=== PATIENT | female | born 1960 | race Caucasian/White ===

== ENCOUNTER 2017-04-14 16:00 | Emergency (ER) | payer MEDICAID ==
[~2017-04-14] VITALS: Ht 154.9 cm; Wt 65.8 kg
[2017-04-14 16:00] VITALS: BP_SYST 128
--- NOTE | 2017-04-14 16:00 | NUR ---
BROUGHT BACK TO BED #7 AND TRIAGED. REPORT GIVEN TO ESTELA
--- NOTE | 2017-04-14 16:12 | NUR ---
Patient is A& O x 4 and ambulated to bedside. Patient complains of insect bite on left elbow for 2 days now itching and feeling pain radiating up arm. 6/10 pain. Denies any fevers. No other complaints/injuries per patient or as noted. Will continue to monitor.
--- NOTE | 2017-04-14 16:15 | NUR ---
NIKKI Hutchinson at bedside examining patient.
[2017-04-14 16:24] VITALS: BP_SYST 128
--- NOTE | 2017-04-14 16:24 | NUR ---
Patient given written and verbal discharge instructions and verbalizes understanding. ER MD discussed with patient the results and treatment provided. Patient in stable condition. ID arm band removed. Rx of Hydrocortisone Ointment and Keflex given. Patient educated on pain management and to follow up with PMD in 2-3 days. Pain Scale 0/10 Opportunity for questions provided and answered.
== END 2017-04-14 16:24 | disposition home or self-care (01) ==
LOC: SED 16:00
DX: S50.362A Insect bite (nonvenomous) of left elbow, initial encounter (principal); L03.114 Cellulitis of left upper limb; I10 Essential (primary) hypertension; Z90.49 Acquired absence of other specified parts of digestive tract; W57.XXXA Bitten or stung by nonvenomous insect and other nonvenomous arthropods, initial encounter; Y93.89 Activity, other specified; Y92.89 Other specified places as the place of occurrence of the external cause; Y99.8 Other external cause status
CPT/HCPCS: 99283

== ENCOUNTER 2020-03-11 11:18 | Emergency (ER) | payer MEDICAID ==
[~2020-03-11] VITALS: Ht 154.9 cm; Wt 69.9 kg
[2020-03-11 11:18] VITALS: BP_SYST 139
[2020-03-11 12:52] LABS: BASOPHILS % (AUTO) 0.9 % (0.0-2.0); EOSINOPHILS # (AUTO) 0.1 K/uL (0.0-0.4); EOSINOPHILS % (AUTO) 1.2 % (0.0-4.0); HEMATOCRIT 26.1 % (36-48); HEMOGLOBIN 8.1 g/dL (12.0-16.0); LYMPHOCYTES # (AUTO) 1.8 K/uL (1.0-5.5); LYMPHOCYTES % (AUTO) 33.9 % (20.5-51.5); MEAN CORPUSCULAR HEMOGLOBIN 22 pg (27-31); MEAN CORPUSCULAR HGB CONC 31 % (32-36); MEAN CORPUSCULAR VOLUME 71 fL (79.0-98.0); MONOCYTES # (AUTO) 0.3 K/uL (0.0-1.0); MONOCYTES % (AUTO) 5.9 % (1.7-9.3); NEUTROPHILS # (AUTO) 3.1 K/uL (1.8-7.7); NEUTROPHILS % (AUTO) 58.1 % (40.0-70.0); PLATELET COUNT (AUTO) 391 K/uL (130-430); RED BLOOD CELL COUNT(AUTO) 3.69 MIL/uL (4.2-6.2); RED CELL DISTRIBUTION WIDTH 18.2 % (9.0-15.0); WHITE BLOOD COUNT (AUTO) 5.3 K/uL (4.8-10.8)
[2020-03-11 13:09] LABS: CALCIUM 10.6 mg/dL (8.4-11.0); CREATININE 0.64 mg/dL (0.55-1.30); POTASSIUM 3.7 mmol/L (3.5-5.1)
[2020-03-11 13:24] LABS: ALBUMIN 3.8 g/dL (3.4-4.8); FREE T4 (FREE THYROXINE) 1.2 ng/dl (0.8-1.5); THYROID STIMULATING HORMONE 1.53 uIu/mL (0.36-3.74); TOTAL BILIRUBIN 0.3 mg/dL (0.0-1.0)
[2020-03-11 14:46] VITALS: BP_SYST 139
== END 2020-03-11 14:46 | disposition home or self-care (01) ==
LOC: SED 11:18
DX: F41.9 Anxiety disorder, unspecified (principal); I10 Essential (primary) hypertension; Z88.1 Allergy status to other antibiotic agents
CPT/HCPCS: 36415; 80053; 81002; 82962; 84439; 84443-TC; 85025; 99283

== ENCOUNTER 2021-11-11 08:54 | Emergency (ER) | payer MEDICAID ==
[~2021-11-11] VITALS: Ht 154.9 cm; Wt 65.8 kg
[~2021-11-11 08:54] MED LIST: ASA81 PO; ASCO500T20 PO; CYAN100010 PO; FER300L PO; HYDR25TA4 PO; LISI20TA30 PO; NOR10 PO; OMEP20CA15 PO; PRO40 PO; SENN-22 PO; TURM1CAP2 PO; VITD400 PO
[2021-11-11 09:01] VITALS: BP_SYST 143
--- NOTE | 2021-11-11 09:11 | NUR ---
Patient to ER bed 6 to gown for evaluation. Side rails up. Report given to NIKKI Harrison .
--- NOTE | 2021-11-11 09:15 | NUR ---
ER DR. FISCHER AT THE BEDSIDE EXAMINING PT
--- NOTE | 2021-11-11 09:20 | NUR ---
PT CAME IN FROM HOME C/O ROSS, NAUSEA AND DIARRHEA AND FEELING WEAK X 1 WEEK. PT IS AMBULATORY, [id number], VSS
--- NOTE | 2021-11-11 09:28 | NUR ---
PORTABLE XRAY AT THE BEDSIDE
--- NOTE | 2021-11-11 09:32 | NUR ---
LAB AT THE BEDSIDE FOR BLOOD DRAW
[2021-11-11 10:01] LABS: ANION GAP 7 (5-15); CALCIUM 10.7 mg/dL (8.4-11.0); CHLORIDE 101 mmol/L (98-107); CREATININE 0.53 mg/dL (0.55-1.30); GLUCOSE 112 mg/dL (70-99); POTASSIUM 3.2 mmol/L (3.5-5.1); SODIUM SERUM 137 mmol/L (136-145); UREA NITROGEN, BLOOD 9 mg/dL (8-21)
[2021-11-11 10:04] LABS: BASOPHILS # (AUTO) 0.1 K/uL (0.0-0.2); BASOPHILS % (AUTO) 1.4 % (0.0-2.0); EOSINOPHILS # (AUTO) 0.1 K/uL (0.0-0.4); EOSINOPHILS % (AUTO) 1.8 % (0.0-4.0); LYMPHOCYTES # (AUTO) 1.3 K/uL (1.0-5.5); LYMPHOCYTES % (AUTO) 29.9 % (20.5-51.5); MEAN CORPUSCULAR HEMOGLOBIN 31 pg (27-31); MEAN CORPUSCULAR HGB CONC 33 % (32-36); MEAN CORPUSCULAR VOLUME 92 fL (79.0-98.0); MONOCYTES # (AUTO) 0.2 K/uL (0.0-1.0); MONOCYTES % (AUTO) 4.9 % (1.7-9.3); NEUTROPHILS # (AUTO) 2.8 K/uL (1.8-7.7); PLATELET COUNT (AUTO) 292 K/uL (130-430); RED BLOOD CELL COUNT(AUTO) 4.58 MIL/uL (4.2-6.2); RED CELL DISTRIBUTION WIDTH 14.2 % (9.0-15.0); WHITE BLOOD COUNT (AUTO) 4.5 K/uL (4.8-10.8)
[2021-11-11 10:10] LABS: ALANINE AMINOTRANSFERASE 37 U/L (12-78); ASPARTATE AMINOTRANSFERASE 20 U/L (10-37); TOTAL BILIRUBIN < 0.1 mg/dL (0.0-1.0)
[2021-11-11 10:13] LABS: GFR AFRICAN AMERICAN 151 mL/min (>90)
[2021-11-11] MEDS ORDERED: POTA-197 PO (11:01)
[2021-11-11 11:44] VITALS: BP_SYST 143
--- NOTE | 2021-11-11 11:45 | NUR ---
Patient given written and verbal discharge instructions and verbalizes understanding. Dr. Emilio JORDAN MD discussed with patient the results and treatment provided. Patient in stable condition. ID arm band removed. Patient educated on pain management and to follow up with PMD. Pain Scale 0/10. Opportunity for questions provided and answered.
== END 2021-11-11 11:44 | disposition home or self-care (01) ==
LOC: SED 08:54
DX: E87.6 Hypokalemia (principal); I10 Essential (primary) hypertension; E11.9 Type 2 diabetes mellitus without complications; Z88.1 Allergy status to other antibiotic agents; Z88.8 Allergy status to other drugs, medicaments and biological substances; Z79.899 Other long term (current) drug therapy
CPT/HCPCS: 36415; 71045; 80053; 81002; 83880; 84484; 85025; 93005; 99285

== ENCOUNTER 2022-10-28 10:55 | Emergency (ER) | payer MEDICAID ==
[~2022-10-28] VITALS: Ht 154.9 cm; Wt 68.9 kg
[~2022-10-28 10:55] MED LIST changes: +POTA-197 PO
[2022-10-28 11:19] VITALS: BP_SYST 134
--- NOTE | 2022-10-28 11:40 | NUR ---
Pt drove herself to ED from home. Pt states she feels dizzy and fitigued. Pt checks blood pressure and states blood pressure is high. Pt states that BP fluctuates from 112 to 135 systolic.
[2022-10-28 12:00] LABS: EOSINOPHILS # (AUTO) 0.1 K/uL (0.0-0.4); EOSINOPHILS % (AUTO) 1.7 % (0.0-4.0); HEMOGLOBIN 14.2 g/dL (12.0-16.0); LYMPHOCYTES # (AUTO) 1.7 K/uL (1.0-5.5); LYMPHOCYTES % (AUTO) 41.4 % (20.5-51.5); MEAN CORPUSCULAR HEMOGLOBIN 32 pg (27-31); MEAN CORPUSCULAR HGB CONC 34 % (32-36); MEAN CORPUSCULAR VOLUME 95 fL (79.0-98.0); MONOCYTES # (AUTO) 0.2 K/uL (0.0-1.0); MONOCYTES % (AUTO) 5.7 % (1.7-9.3); PLATELET COUNT (AUTO) 252 K/uL (130-430); RED BLOOD CELL COUNT(AUTO) 4.44 MIL/uL (4.2-6.2); RED CELL DISTRIBUTION WIDTH 13.5 % (9.0-15.0); WHITE BLOOD COUNT (AUTO) 4.2 K/uL (4.8-10.8)
[2022-10-28 12:09] LABS: ANION GAP 8 (5-15); CALCIUM 9.8 mg/dL (8.4-11.0); CHLORIDE 102 mmol/L (98-107); CREATININE 0.62 mg/dL (0.55-1.30); GFR AFRICAN AMERICAN 125 mL/min (>90); GLUCOSE 110 mg/dL (70-99); UREA NITROGEN, BLOOD 9 mg/dL (8-21)
[2022-10-28 12:11] LABS: BASOPHILS % (AUTO) 0.5 % (0.0-2.0); NEUTROPHILS # (AUTO) 2.2 K/uL (1.8-7.7); NEUTROPHILS % (AUTO) 50.7 % (40.0-70.0)
[2022-10-28 12:16] LABS: ALANINE AMINOTRANSFERASE 80 U/L (12-78); ASPARTATE AMINOTRANSFERASE 31 U/L (10-37); TOTAL BILIRUBIN 0.4 mg/dL (0.0-1.0)
--- NOTE | 2022-10-28 12:21 | NUR ---
PT AMBULATES ROOM 3 FROM HOME WITH C/O MYA HEAD PRESSURE, INTERMITTENTLY X 1 WEEK WITH GRADUAL ONSET. DENIES PAIN OR LIGHT SENSITIVITY. NO NUCCHAL RIGIDITY. DENIES FEVERS/CHILLS.N/V. REPORTS OCASIONAL RIGHT EYE TWITCHING. NO RECENT STRESS FACTORS. OCCASIONAL MILD DIZZINESS WITH WALKING ONLY. STATES SHE TAKES HER BP AT HOME AND READS HIGH 155 SYSTOLIC, ALSO OVER 10 YEARS OLD (THE BP MACHINE) TEACHING DONE ON IMPORTANCE OF GETTING NEW BP MACHINE, VERBALIZED UNDRSTANDING. WILL CONT TO MONITOR, SAFETY PRECAUTIONS IN PLACE.
--- NOTE | 2022-10-28 12:25 | NUR ---
DR FISCHRE IN ROOM FOR EXAM
--- NOTE | 2022-10-28 13:21 | NUR ---
Patient given written and verbal discharge instructions and verbalizes understanding. ER MD discussed with patient the results and treatment provided. Patient in stable condition. ID arm band removed.
== END 2022-10-28 13:31 | disposition home or self-care (01) ==
LOC: SED 10:55
DX: R53.1 Weakness (principal); R42 Dizziness and giddiness; E11.9 Type 2 diabetes mellitus without complications; I10 Essential (primary) hypertension; Z88.1 Allergy status to other antibiotic agents; Z88.8 Allergy status to other drugs, medicaments and biological substances; Z79.899 Other long term (current) drug therapy
CPT/HCPCS: 36415; 71045; 80053; 83880; 84484; 85025; 93005; 99285